=== PATIENT | female | born 2000 | race Caucasian/White ===

== ENCOUNTER 2022-05-28 11:55 | Outpatient (CLI) | payer OTHER, SELFPAY ==
--- NOTE | 2022-05-28 12:15 | CRLHL7_ITS ---
For Patients: As a result of the Cures Act, medical imaging exams and procedure reports are released immediately into your electronic medical record. You may view this report before your referring provider. If you have questions, please contact your health care provider. INDICATION: First trimester scan, establish dates. The last menstrual period is not known. COMPARISON: None. TECHNIQUE: Real-time glover-scale imaging of the pelvis was performed. FINDINGS: Sonographic imaging demonstrates a single living intrauterine gestation. The embryo demonstrates a regular cardiac rate measuring 176 beats per minute. The embryo`s crown-rump length measurement of 1.6 cm corresponds to a gestational age of 8 weeks 0 days with a sonographic due date of January 07, 2023. There is a normal-appearing yolk sac measuring 3.3 mm. There are no gross abnormalities noted within the embryo at this early state of development. The placenta has not yet developed. The gestational sac has a normal appearance and there is no evidence of a perigestational hemorrhage. The amount of fluid within the sac appears appropriate for gestational age. The cervix is closed. The myometrium appears normal. The ovaries are of normal size. The right ovary measures 3.4 x 2.4 x 2.5 cm. The left ovary measures 3.0 x 1.2 x 1.6 cm. Small corpus luteum cyst of on the right. Minimal free clear fluid in the cul-de-sac likely physiologic. IMPRESSION: Normal first trimester OB ultrasound exam. Gestational age calculated at 8 weeks 0 days with a sonographic due date of January 07, 2023. Dictated by Chinmay Moya MD @ 05/28/2022 1:11:42 PM (Electronically Signed)
== END 2022-05-28 11:56 | disposition home or self-care (01) ==
LOC: US 11:55
PROVIDERS: Visit Provider Advanced Practice Midwife
DX: Z34.91 Encounter for supervision of normal pregnancy, unspecified, first trimester (principal)
CPT/HCPCS: 76817; 86592; 86703; 86762; 86787; 86803; 86850; 86900; 86901; 87086; 87340; 87491; 87591; 88174

== ENCOUNTER 2022-05-28 13:46 | Outpatient (CLI) | payer OTHER, SELFPAY ==
[2022-05-28 17:53] LABS: Hepatitis B Surface Antigen* Negative (Negative)
[2022-05-28 18:02] LABS: HIV 1/2/P24 Combo Screen* Negative (Negative)
[2022-05-28 18:11] LABS: Hepatitis C Virus Antibody* Negative (Negative)
[2022-05-28 18:45] LABS: Chlamydia DNA Amplified* NOT DETECTED (No Detected); GC DNA Amplified* NOT DETECTED (No Detected)
[2022-05-30 15:09] LABS: Varicella-Zoster Virus Ab, IgG 97.8 IV
[2022-05-30 15:28] LABS: Rapid Plasma Reagin (RPR) Non Reactive (Non Reactive)
== END 2022-05-28 13:47 | disposition home or self-care (01) ==
PROVIDERS: Visit Provider Advanced Practice Midwife
DX: Z34.91 Encounter for supervision of normal pregnancy, unspecified, first trimester (principal); Z3A.08 8 weeks gestation of pregnancy
CPT/HCPCS: 86592; 86703; 86762; 86787; 86803; 86850; 86900; 86901; 87086; 87340; 87491; 87591; 88174

== ENCOUNTER 2022-08-21 07:59 | Outpatient (CLI) | payer OTHER, SELFPAY ==
--- NOTE | 2022-08-21 08:15 | CRLHL7_ITS ---
For Patients: As a result of the Century Cures Act, medical imaging exams and procedure reports are released immediately into your electronic medical record. You may view this report before your referring provider. If you have questions, please contact your health care provider. INDICATION: Evaluate anatomy. COMPARISON: 05/28/2022 TECHNIQUE: Real time glover scale imaging of the fetus was performed as well as color Doppler analysis of the umbilical vessels. FINDINGS: Sonographic imaging demonstrates a single living intrauterine gestation. Fetus demonstrates a regular cardiac rate of 139 beats per minute. Fetus has a breech position. The placenta lies anteriorly without evidence of placenta previa. The edge of the placenta is located 6.0 cm from the internal cervical os. Amniotic fluid volume appears normal. Single deepest vertical pocket: 3.7 cm. The cervix is closed and measures 4.0 cm in length. The composite ultrasound gestational age is calculated at 20 weeks 1 day with an estimated sonographic due date of 01/07/2023. The estimated weight is 326 grams which lies at the 37th %. The following biometric measurements were obtained: Biparietal diameter: 4.5 cm/19 weeks 4 days 25th% Head circumference: 17.3 cm/19 weeks 6 days 30th% Abdominal circumference: 14.7 cm/20 weeks 0 days 39th% Femur length: 3.2 cm/20 weeks 1 day 40th% The HC/AC ratio measures: 1.18 range (1.07-1.25) On anatomic survey, there is a normal appearance of the cerebral ventricles, cavum septi pellucidi, cisterna magna and cerebellum. The nose, lips, and facial profile appear normal. The cervical, thoracic and lumbar spine are well visualized and appear normal. There is a normal four-chamber heart view. The left and right ventricular outflow tracts are not well visualized. The diaphragm and stomach appear normal. The kidneys and bladder also appear normal. There is a normal three-vessel cord and cord insertion site. The four extremities appear normal. IMPRESSION: Concordance of clinical and sonographic dating. Incomplete visualization of the cardiac outflow tracts due to position. Remainder of the anatomic survey is normal. Short-term follow-up recommended. Dictated by Bulmaro Smith MD @ 08/21/2022 10:31:14 AM (Electronically Signed)
== END 2022-08-21 08:00 | disposition home or self-care (01) ==
LOC: US 08:00
PROVIDERS: Visit Provider Advanced Practice Midwife
DX: Z34.92 Encounter for supervision of normal pregnancy, unspecified, second trimester (principal); Z3A.20 20 weeks gestation of pregnancy
CPT/HCPCS: 76805

== ENCOUNTER 2022-08-28 08:17 | Outpatient (CLI) | payer OTHER, SELFPAY ==
--- NOTE | 2022-08-28 08:15 | CRLHL7_ITS ---
For Patients: As a result of the Century Cures Act, medical imaging exams and procedure reports are released immediately into your electronic medical record. You may view this report before your referring provider. If you have questions, please contact your health care provider. INDICATION: SUBOPTIMAL HEART VIEWS ON ANATOMY SURVEY COMPARISON: 08/21/2022 TECHNIQUE: Real time glover scale imaging of the fetus was performed. FINDINGS: Sonographic imaging demonstrates a single living intrauterine gestation. Fetus demonstrates a regular cardiac rate of 147 beats per minute. Fetus has a vertex position. The placenta lies anteriorly. Amniotic fluid volume appears normal. Single deepest vertical pocket: 4.6 cm. There is a normal four-chamber heart view and the left and right ventricular outflow tracts appear normal. IMPRESSION: Normal four-chamber heart and outflow tracts. Dictated by Bulmaro Smith MD @ 08/28/2022 9:14:10 AM (Electronically Signed)
== END 2022-08-28 08:18 | disposition home or self-care (01) ==
LOC: US 08:18
PROVIDERS: Visit Provider Advanced Practice Midwife
DX: O36.8390 Maternal care for abnormalities of the fetal heart rate or rhythm, unspecified trimester, not applicable or unspecified (principal)
CPT/HCPCS: 76816

== ENCOUNTER 2022-09-02 12:00 | Outpatient (CLI) | payer OTHER, SELFPAY ==
[2022-09-02 11:40] VITALS: BP 113/67; PULSE 87; RESP 16; TEMP 36.4; O2SAT 99; BMI 31.4
[2022-09-02 12:09] VITALS: PULSE 73; O2SAT 98
[2022-09-02 12:10] VITALS: RESP 16; TEMP 37
[2022-09-02 12:21] VITALS: BP 108/63; PULSE 75
--- NOTE | 2022-09-02 13:19 | PC.OBNST ---
NST Note NST Note Start: 09/02/22 12:13 Freq: ONCE Status: Active Protocol: Document 09/02/22 13:14 MONTY (Rec: 09/02/22 13:18 MONTY [id number]) NST Note 1 Para (# of births) 0 EDC 01/07/23 Gestational Age In Weeks & Days 21 Weeks & 6 Days Patient Presented with Complaint(s) of Pain If Pain, describe location Upper/center abdomen, top of rectus abominis Other Complaints Was lifting heavy furniture and had sudden pain there with N/V-had a few spots of blood with vomiting after a half hour. Appropriate for Gestational Age Yes JJ Felix Date 09/02/22 Appropriate for Gestational Age Yes JJ Hernandez RN Date 09/02/22 OB NST charge Yes Complete NST Note via Write Note Yes The provider's electronic signature indicates the NST is reactive/appropriate for gestational age. *Note to provider: If an addendum is required, open the patient's chart and click on the note under the Nurse/Allied Health tab.
--- NOTE | 2022-09-02 13:23 | P.OBLDTN_ITS ---
OB - Triage/Final Diagnosis Visit Information Time Seen by Provider: 13:24 Date Seen: 09/02/22 Date of evaluation: 09/02/22 Narrative: The patient is a 22 year old 1 para 0 at 21 6/7 weeks gestation by u/s and uncomplicated , who presents with abdominal pain and an episode of vomiting this morning. 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 This morning she was putting together a rocking chair at home, while pulling out heavy pieces from the box she felt a sharp pain in her upper abdomen again. She tried resting and a warm bath but it did not help with the pain. She vomited for about 20 minutes around 9:50am, towards the end of the vomiting small bits of bright red blood came up with the vomit - which was mostly water/bile since she did not have much to eat for breakfast per pt. Pt denies any nausea or vomiting since. She came into the ER today with her mother and grandmother, and was sent to L&D triage. Vital Signs are normal. Pt denies contractions, uterine pain, bleeding or vaginal discharge. Denies diarrhea, headaches, nausea or any other pain. Pt stated that the abdominal pain is minimal while resting, but increases with movement and standing. She was able to eat and drink after the exam with no increase in pain or nausea. Upper abdomen is tender to palpation, but soft with no guarding. Uterus is 1 finger breadth above umbilicus, pt denies pain or tenderness with fundal or lower abdominal palpation. Consulted with Dr. Dickey, pain does not seem to be OB related. Likely pulled muscle. Pt stable, discharged home. Pt counseled to return to ER if increase in pain, nausea/vomiting/diarrhea, anorexia, fever, bleeding, cramping/contractions, or increased vaginal discharge/fluid leaking. Work note given at pt's request to excuse her from work for tomorrow d/t the need for rest and recovery, and the physical nature of her job. Reason for evaluation: other Evaluation Vital signs: Vital Signs - 24 hr 09/02/22 11:40 09/02/22 12:09 09/02/22 12:21 Temperature 97.6 F Pulse Rate Pulse Rate [Pulse Oximeter] 87 Respiratory Rate 16 Blood Pressure 108/63 Blood Pressure [Right Upper Arm] 113/67 Pulse Oximetry 99 98 Oxygen Delivery Method Room Air 09/02/22 12:21 09/02/22 12:10 09/02/22 12:10 Temperature 98.6 F Pulse Rate 75 Pulse Rate [Pulse Oximeter] Respiratory Rate 16 Blood Pressure Blood Pressure [Right Upper Arm] Pulse Oximetry Oxygen Delivery Method Fetus (Single) Heart Rate Baseline: 145 (Gestational Age appropriate FHT) Blood Bank Order Control Clerk Variability: Moderate (11-25) Monitor Accelerations: Absent Monitor Decelerations: Variable (occasional) Final Diagnosis (1) Abdominal pain due to injury: Status: Acute (2) Supervision of normal first in second trimester: Status: Acute Non Stress Test Procedure Non Stress Test performed?: No
== END 2022-09-02 14:05 | disposition home or self-care (01) ==
LOC: OB OUT 12:01 → OB 12:01
PROVIDERS: Visit Provider Advanced Practice Midwife
DX: O47.02 False labor before 37 completed weeks of gestation, second trimester (principal); Z3A.21 21 weeks gestation of pregnancy
CPT/HCPCS: 59025; 99213

== ENCOUNTER 2022-10-16 10:54 | Outpatient (CLI) | payer OTHER, SELFPAY ==
[2022-10-18 03:14] LABS: Rapid Plasma Reagin (RPR) Non Reactive (Non Reactive)
== END 2022-10-16 10:55 | disposition home or self-care (01) ==
LOC: NFLDREF 10:54
PROVIDERS: Visit Provider Advanced Practice Midwife
DX: Z34.03 Encounter for supervision of normal first pregnancy, third trimester (principal); Z3A.28 28 weeks gestation of pregnancy
CPT/HCPCS: 86592

== ENCOUNTER 2022-12-11 10:56 | Outpatient (CLI) | payer MEDICAID, OTHER, SELFPAY ==
--- NOTE | 2022-12-11 11:00 | CRLHL7_ITS ---
For Patients: As a result of the Century Cures Act, medical imaging exams and procedure reports are released immediately into your electronic medical record. You may view this report before your referring provider. If you have questions, please contact your health care provider. INDICATION: GROWTH, COVID IN COMPARISON: 08.21.22, 08.28.22 TECHNIQUE: Real time glover scale imaging of the fetus was performed. FINDINGS: Sonographic imaging demonstrates a single living intrauterine gestation. Fetus demonstrates a regular cardiac rate of 157 beats per minute. Fetus has a vertex position. The placenta lies anteriorly. Amniotic fluid volume appears normal and there is a single deepest vertical pocket: 6.7 cm. The estimated weight is 2841gm which lies at the 50th %. On the prior OB ultrasound exam dated 08/21/2022 the estimated weight was at the 37th%. BPD 3rd percentile. HC 28th percentile. AC 63rd percentile. FL 63rd percentile. The HC/AC ratio measures 1.00 range (0.93-1.09). IMPRESSION: Sonographic gestational age 35 weeks 5 days and sonographic due date 01/10/2023. Good correlation with dates. Normal interval growth. Estimated weight 50th percentile. Abdominal circumference 63rd percentile. Dictated by Bulmaro Smith MD @ 12/11/2022 11:58:08 AM (Electronically Signed)
== END 2022-12-11 10:57 | disposition home or self-care (01) ==
LOC: US 10:56
PROVIDERS: Visit Provider Advanced Practice Midwife
DX: O98.513 Other viral diseases complicating pregnancy, third trimester (principal); U07.1 COVID-19; Z3A.36 36 weeks gestation of pregnancy
CPT/HCPCS: 76816; 87081; 87653

== ENCOUNTER 2022-12-11 12:10 | Outpatient (CLI) | payer MEDICAID, SELFPAY ==
[2022-12-12 15:47] LABS: Strep B DNA Probe POSITIVE (Negative)
[2022-12-12 15:48] LABS: Strep B Pen/Amox Allergy No
== END 2022-12-11 12:11 | disposition home or self-care (01) ==
PROVIDERS: Visit Provider Advanced Practice Midwife
DX: Z34.93 Encounter for supervision of normal pregnancy, unspecified, third trimester (principal); Z3A.36 36 weeks gestation of pregnancy
CPT/HCPCS: 87081; 87653

== ENCOUNTER 2022-12-23 23:42 | Outpatient (CLI) | payer MEDICAID, SELFPAY ==
[2022-12-23 23:52] VITALS: BP 130/64; PULSE 86; PULSE 94; O2SAT 97
--- NOTE | 2022-12-24 06:23 | PC.OBNST ---
NST Note NST Note Start: 12/23/22 23:59 Freq: ONCE Status: Active Protocol: Document 12/24/22 01:00 AM (Rec: 12/24/22 06:23 AM [id number]) NST Note 1 Para (# of births) 0 EDC 01/07/23 Gestational Age In Weeks & Days 38 Weeks & 0 Days Patient Presented with Complaint(s) of Decreased movement Reactive Yes Appropriate for Gestational Age Yes RN Randall RNC Date 12/24/22 Reactive Yes Appropriate for Gestational Age Yes JJ Jacinto RN Date 12/24/22 OB NST charge Yes Complete NST Note via Write Note Yes The provider's electronic signature indicates the NST is reactive/appropriate for gestational age. *Note to provider: If an addendum is required, open the patient's chart and click on the note under the Nurse/Allied Health tab.
== END 2022-12-24 01:15 | disposition home or self-care (01) ==
LOC: OB OUT 23:43 → OB 23:44
PROVIDERS: Visit Provider Advanced Practice Midwife
DX: Z34.93 Encounter for supervision of normal pregnancy, unspecified, third trimester (principal); Z3A.38 38 weeks gestation of pregnancy
CPT/HCPCS: 59025; 99213

== ENCOUNTER 2023-01-03 21:07 | Outpatient (CLI) | payer MEDICAID, SELFPAY ==
[2023-01-03 21:26] VITALS: BP 120/63; PULSE 84; PULSE 87; O2SAT 98
[2023-01-03 21:53] LABS: Amnisure Rom* Negative
--- NOTE | 2023-01-03 22:48 | PC.OBNST ---
NST Note NST Note Start: 01/03/23 21:12 Freq: ONCE Status: Active Protocol: Document 01/03/23 22:46 NATE (Rec: 01/03/23 22:47 NATE [id number]) NST Note 1 Para (# of births) 0 EDC 01/07/23 Gestational Age In Weeks & Days 39 Weeks & 3 Days Patient Presented with Complaint(s) of Leaking fluid Reactive Yes Appropriate for Gestational Age Yes JJ Cowan RN Date 01/03/23 Reactive Yes Appropriate for Gestational Age Yes JJ Jacques RN Date 01/03/23 OB NST charge Yes Complete NST Note via Write Note Yes The provider's electronic signature indicates the NST is reactive/appropriate for gestational age. *Note to provider: If an addendum is required, open the patient's chart and click on the note under the Nurse/Allied Health tab.
== END 2023-01-03 22:46 | disposition home or self-care (01) ==
LOC: OB OUT 21:07 → OB 21:09
PROVIDERS: Visit Provider Advanced Practice Midwife
DX: O47.1 False labor at or after 37 completed weeks of gestation (principal); Z3A.39 39 weeks gestation of pregnancy
CPT/HCPCS: 59025; 84112; 99213

== ENCOUNTER 2023-01-14 07:09 | Inpatient (IN) | payer MEDICAID, SELFPAY ==
[2023-01-14 07:31] VITALS: BP 123/75; PULSE 105; PULSE 99; RESP 20; TEMP 36.6; O2SAT 95
[2023-01-14 07:35] VITALS: BMI 36.2
--- NOTE | 2023-01-14 08:15 | P.LDBA_ITS ---
Subjective History of Present Illness Date Seen: 01/14/23 Narrative: Samantha is being admitted to Labor and Delivery for post dates induction of labor. She is a 22 year old at 41.0 weeks gestation. Her full history and physical was done on 12/17/21 by PERI Hung w/ supervision of CHLOE Jimenez. Please see this for details. OB PROBLEM LIST 1. Unplanned . Initially undecided about , decided they are going to continue 2. Anxiety-MAGDIEL 17 at [facility], declined treatment. 3. Covid positive 09/20, out of quarantine 09/29/22 Cough following covid with SOB/pain, albuterol inhaler rx sent 09/29/22; Symptoms resolved 32 Growth US: not planning 36 growth US: 50%ile, BPD 3% with normal HC 4. Anemia- Hgb 10.7 in 3rd trimester advised iron supplementation, every other day 5. GBS positive recommended antibiotics (ampicillin) in labor, pt agreeable OB - Problem Based A/P Additional Plan (1) Encounter for induction of labor: Status: Acute (2) Post-dates : Status: Acute Plan ASSESSMENT:? 22 at 41.0 weeks gestation? complicated by:?GBS positive, Anemia in the third trimester, Covid in Labor type: Induced, Early labor? Category 1 FHR pattern.?? Labor complicated by: NA? GBS positive? ? PLAN:? 1. Routine intrapartum cares as ordered. Cytotec per policy? 2. Monitoring per policy, continuous with Cytotec 3. Candidate for analgesia of choice.?? 4. Patient encouraged to reposition and ambulate to promote physiologic labor and .? 5. GBS phrophylaxis to be initiated for GBS positive status. Will treat with antibiotics per protocol once in active labor. 6. Anticipate ? Delivery/Labor/Induction Plan Plan: induction Induction method: per misoprostol protocol OB Exam Physical Exam Vital signs: Temp Pulse Resp BP Pulse Ox 98 F 76 20 139/82 95 01/14/23 12:02 01/14/23 16:33 01/14/23 16:33 01/14/23 16:33 01/14/23 07:31 Narrative: Vitals Reviewed Constitutional:? Alert and oriented x3 HEENT:? Normocephalic, atraumatic Neck:? Supple Lungs:? Clear to auscultation bilaterally Heart:? Regular rate and rhythm, no murmur, rub or gallop Abdomen:? Soft, nontender, and gravid. Vertex by Tan's, confirmed with cervical exam. Extremities:? No edema or erythema Cervix: 0.5 cm/30%/-2 station/vertex NST: 130 bpm/moderate variability/+accelerations/-decelerations/occasional contractions Detailed Labor and Delivery Exam Patient Gravid: Yes
[2023-01-14 08:26] LABS: SARS PCR* Negative SARS-CoV-2 (Negative)
[2023-01-14] MEDS: miSOPROStoL 25 MCG/0.25 TABLET VAGINAL ×3 (08:33→16:36)
[2023-01-14 10:22] LABS: Basophils Absolute Auto 0.01 K/uL (0.00-0.30); Basophils Percent Auto 0.1 % (0.0-3.0); Eosinophils Absolute Auto 0.18 K/uL (0.00-0.50); Eosinophils Percent Auto 1.9 % (0.0-7.0); Hematocrit 30.6 % (33.0-51.0); Immature Granulocytes Abs Auto 0.04 K/uL (0.00-0.30); Immature Granulocytes Pct Auto 0.4 %; Lymphocytes Absolute Auto 2.25 K/uL (0.90-2.90); Lymphocytes Percent Auto 23.5 % (20-44); Mean Corpuscular HGB Conc 33 gm/dL (32-36); Mean Corpuscular Hemoglobin 28 pg (26-34); Mean Corpuscular Volume 86 fL (80-100); Monocytes Percent Auto 7.7 % (0.0-11.0); Neutrophils Absolute Auto 6.36 K/uL (1.7-7.0); Neutrophils Percent Auto 66.4 % (42.0-72.0); Platelet Count* 239 K/uL (140-440); RDW Coefficient of Variation % 13.6 % (11.5-15.5); Red Blood Count 3.54 m/uL (4.00-5.20); White Blood Count* 9.58 K/uL (4.50-11.00)
[2023-01-14 10:27] LABS: Slide Review Reflex No
[2023-01-14 12:02] VITALS: BP 125/58; PULSE 76; RESP 20; TEMP 36.6
[2023-01-14 16:33] VITALS: BP 139/82; PULSE 76; RESP 20
--- NOTE | 2023-01-14 17:22 | PM.OBPNL ---
Subjective Date Seen: 01/14/23 Narrative: Samantha is resting in her room, her dad and significant other are present. She denies contractions or pain at this time. Pt is agreeable to continuing with the current IOL plan of Cytotec. Has been napping throughout the day, She is currently having dinner. Objective Vital Signs: Last Vital Signs Temp 98 F 01/14/23 12:02 Pulse 76 01/14/23 16:33 Resp 20 01/14/23 16:33 BP 139/82 01/14/23 16:33 Pulse Ox 95 01/14/23 07:31 Pelvic Exam Dilation (cm): 1 Comments: per RN Contractions Monitor mode: External Contraction Frequency: irritability Contraction pattern: Irregular Contraction intensity: Mild Assessment Assessment: induction ongoing Heart Rate Baseline: 120 Automotive Service Writer Variability: Moderate (6-25) Monitor Accelerations: Present Monitor Decelerations: None Plan Plan: ASSESSMENT:? 22 at 41.0 weeks gestation? complicated by:?GBS positive, Anemia in the third trimester, Covid in Labor type: Induced, Early labor? Category 1 FHR pattern.?? Labor complicated by: NA? GBS positive? ? PLAN:? 1. Routine intrapartum cares as ordered. Cytotec per policy? 2. Monitoring per policy, continuous with Cytotec 3. Candidate for analgesia of choice.?? 4. Patient encouraged to reposition and ambulate to promote physiologic labor and .? 5. GBS phrophylaxis to be initiated for GBS positive status. Will treat with antibiotics per protocol once in active labor. 6. Anticipate ? Delivery/Labor/Induction Plan Plan: induction Induction method: per misoprostol protocol
[2023-01-14] MEDS: ACETAMINOPHEN 500 MG TABLET 1000 MG PO (20:44)
[2023-01-14 23:11] VITALS: BP 145/71; PULSE 86; RESP 18; TEMP 36.6
[2023-01-14 23:27] VITALS: BP 130/66; PULSE 81
[2023-01-15] VITALS (70 sets, daily range): BP systolic 87–156; BP diastolic 45–96; PULSE 71–154; RESP 16–18; TEMP 36.5–37.4; O2SAT 78–100
[2023-01-15] MEDS: LACTATED RINGERS 1000 ML 1,000 ML IV ×3 (00:24→03:02)
[2023-01-15] MEDS: ROPIVACAINE 0.2% 100 ml 100 ML 12 MG EPIDURAL ×2 (01:08→09:15)
[2023-01-15] MEDS: PHENYLEPHRINE 100 MCG/ML SYRINGE IVP ×4 (01:20→08:05)
--- NOTE | 2023-01-15 01:23 | PM.ANBPRC ---
[facility] Medical History (Updated 01/14/23 @ 17:38 by Clarita Landin CNM) Depression Surgical History No history of previous surgery Family History Maternal Grandfather Diabetes Maternal Grandmother Brain cancer Social History Smoking Status: Never smoker Little interest or pleasure in doing things: several days Feeling down, depressed, or hopeless: several days Meds Home Medications and Allergies Home Medications Medication Instructions Recorded Confirmed Type prenat.vits,gail,[id number] 1 tab PO QDAY 05/28/22 01/14/23 History ferrous sulfate 325 mg (65 mg 325 mg PO Q OTHER DAY 12/24/22 01/14/23 History iron) tablet (Feosol) Allergies Allergy/AdvReac Type Severity Reaction Status Date / Time No Known Allergies Allergy Unknown Verified 01/08/23 10:18 Results Labs Labs: Laboratory Results - last 24 hr 01/14/23 01/14/23 01/14/23 07:24 10:10 10:10 WBC 9.58 RBC 3.54 L Hgb 10.0 L Hct 30.6 L MCV 86 MCH 28 MCHC 33 RDW Coeff of Radha 13.6 Plt Count 239 Neut % (Auto) 66.4 Lymph % (Auto) 23.5 Donley % (Auto) 7.7 Eos % (Auto) 1.9 Baso % (Auto) 0.1 Neut # (Auto) 6.36 Lymph # (Auto) 2.25 Donley # (Auto) 0.70 Eos # (Auto) 0.18 Baso # (Auto) 0.01 SARS-CoV-2 (PCR) Negative SARS-CoV-2 Blood Type A Positive Antibody Screen NEGATIVE Vital Signs Vital Signs: Last Vital Signs Temp 97.9 F 01/14/23 23:11 Pulse 99 01/15/23 01:22 Resp 18 01/14/23 23:11 BP 101/51 L 01/15/23 01:22 Pulse Ox 98 01/15/23 01:09 Weight: 95.708 kg Height: 162.56 cm Anesthesia Procedures Epidural Insertion Patient Location: OB Start Time: 00:25 Stop Time: 01:25 Start Date: 01/15/23 Stop Date: 01/15/23 Reason for Block: procedure for pain Patient Position: sitting Performed By: Bryson Herman Preanesthetic Checklist: IV checked, risks and benefits discussed, surgical consent, monitors and equipment checked, pre-op evaluation, timeout performed and anesthesia consent Prep: chlorhexidine gluconate Monitoring: blood pressure monitoring, continuous pulse oximetry and heart rate Approach: midline Vertebral Space: lumbar (1-5) Epidural Technique: MIGUELITO saline Needle Type: Tuohy needle Injection Technique: continuous catheter Needle gauge: 17 Needle Length (cm): 10 cm Needle Insertion Depth (cm): 8 Catheter Gauge: 19 Catheter Type: multi-orifice Catheter at skin depth (cm): 14 Test Dose Result: negative and lidocaine 1.5% with epinephrine 1 to 200,000
[2023-01-15] MEDS: ePHEDrine sulfate 5 MG/ML inj 10 MG IVP ×2 (01:28→02:11)
[2023-01-15] MEDS: AMPICILLIN 2 GM in 0.9 % SODIUM CHLORIDE Mini-bag 100 ML IVPB (01:41)
[2023-01-15] MEDS: AMPICILLIN 1 GM in 0.9 % SODIUM CHLORIDE Mini-bag 100 ML IVPB ×2 (05:57→09:44)
[2023-01-15] MEDS: OXYTOCIN 30 unit/500 ML in NS 30 UNIT/500 ML BAG IVPB (08:04)
--- NOTE | 2023-01-15 09:41 | PM.OBPNL ---
Subjective Time Seen by Provider: 07:45 Date Seen: 01/15/23 Narrative: Samantha is coping well with labor pain/contractions. She has an epidural which is working well, though she is very shaky. She is currently being supported by her mom and partner. SVE demonstrated little progress since previous exam early this morning. Reviewed options of AROM vs pitocin. Hesitant to use AROM as there is already evidence the fetus is not tolerating ctx. Decision made to proceed with pitocin. Objective Exam: VSS, afebrile General Appearance:? Calm, cooperative. No acute distress. ? Psychiatric Exam: Alert and oriented, appropriate affect Abdomen: Gravid Ctx: ?Q 5-7 min apart. ?Mild FHTs: Baseline: 135 Variability: moderate Accels: present Decels: lates and variables SVE: 4/100/-2 Membranes: Intact ? Vital Signs: Last Vital Signs Temp 97.8 F 01/15/23 06:02 Pulse 106 H 01/15/23 09:32 Resp 16 01/15/23 06:02 BP 112/58 L 01/15/23 09:32 Pulse Ox 98 01/15/23 01:09 Pelvic Exam Dilation (cm): 1 Assessment Heart Rate Baseline: 120 Plan Plan: Assessment:?? 22 at 41.1 gestation?? Patient is coping well with challenges of labor.?? Labor type: Induced, Early labor? complicated by: -anemia Labor complicated by: -GBS positive -late decels at times, not repetative and resolve with position change No progress since 2 am. ? Plan:?? Continue with routine intrapartum cares as ordered.?? Continue with GBS prophylaxis Patient encouraged to change positions to promote physiologic labor and .?? Continue with epidural for pain management Decision made to proceed with pitocin augmentation. Will monitor FHTs closely Anticipate progress to NVD.
--- NOTE | 2023-01-15 10:27 | PM.OBPNL ---
Subjective Time Seen by Provider: 10:15 Date Seen: 01/15/23 Narrative: Called to room by RN. Pitocin up to 3 mu, and now repetitive late decels noted with ctx, becoming deeper and slower return to baseline. Pt repositioned with no resolve of late decels. Reviewed with pt concerns over intolerance to labor, and that this is becoming more pronounced with stronger ctx. Recommend we proceed with . Questions answered. Pt agrees with plans. Objective Exam: VSS, afebrile General Appearance:? Calm, cooperative. No acute distress. ? Psychiatric Exam: Alert and oriented, appropriate affect Abdomen: Gravid Ctx: ?Q 3-5 min apart. ?Mild - Moderate FHTs: Baseline: 140 Variability: min-mod Accels: none Decels: repetitive lates SVE: deferred Membranes: Intact ? Vital Signs: Last Vital Signs Temp 98.9 F 01/15/23 09:52 Pulse 88 01/15/23 10:17 Resp 16 01/15/23 06:02 BP 122/60 01/15/23 10:17 Pulse Ox 98 01/15/23 01:09 Plan Plan: Assessment:?? 22yo G 1 P0 at 41.1 gestation?? Patient is coping with challenges of labor.??Comfortable with epidural. Labor type: Induced for dates complicated by: -anemia Labor complicated by: -GBS positive -repetitive late decels ? Plan:?? Originally planned to proceed with . Dr. Andrade at bedside, pt c/o of increased pressure. Noted to be complete, and decision made to proceed with pushing. Upon further assessment anterior lip noted, not able to reduce. Decision made to restart the pitocin at 1, and continue to labor until complete and pushing. Will continue to monitor FHTs closely. Dr. Andrade aware and agrees with plan
[2023-01-15] MEDS: LACTATED RINGERS 1000 ML 1,000 ML 525 ML IV (10:48)
--- NOTE | 2023-01-15 13:24 | W.PM.OBVAGDE ---
OB Procedure Vag Delivery Mother Details Mother Details: The patient is a 22 year-old, 1, Para 0, admitted on 01/14/23 at 41.0 Days gestation. She was admitted for an IOL for dates. : 1 Para: 1 Weeks Gestation: 41.0 Admission Date: 01/14/23 Additional Details Amniotic Membrane Status: SROM (unknown when) Amniotic Membrane Fluid Description: Clear Analgesia/Anesthesia Type: Epidural Waterbirth: No Pitcoin: Yes Intrapartal Events: Labor Augmentation (pitocin), Labor Induction (cytotec) and Distress (late decels noted, repetative at times. ) Induction Method: per misoprostol protocol Delivery augmentation: pitocin Labor Onset: 08:00 Complete: 11:43 Pushin:43 Heart: heart tones during second stage: decels noted with pushing, becoming increasingly deep. Good recovery to baseline 145 between. Delivery Details Delivery Date: 01/15/23 Delivery Time: 12:40 Route of delivery: Infant Gender: Female Viability: Alive; Heart Rate Present Position at Delivery: OA Delivery Details: Called to pt room for repetitive lates, pitocin DC'd by RNs. Decision made to proceed with . Dr. Andrade at bedside to consent, and pt c/o increased pressure. SVE done, complete per Dr. Andrade. Decision made to start pitocin at 1 cm to help with ctx spacing. Pt then noted to have non-reducible anterior lip. Decision made to labor down and monitor FHTs closely. Pt c/o increased urge to push, anterior lip present but reducible. Decision made to proceed with pushing. Pushing continued, but decelerations noted to be deeper and slower return to baseline. Dr. Andrade called to bedside to assess for vacuum assisted delivery. FHTs noted to improve somewhat, and infant . No vacuumed needed at that time. At 1240 a viable? female delivered in vertex OA presentation over intact perineum via spontaneous vaginal?delivery. ? was placed on maternal abdomen. ?Cord was clamped and cut after a 5+ minute delay.? Nose and mouth were bulb suctioned.? Infant weight pending. ? 8 at 1 minute and 9 at 5 minutes. ?Shoulder dystocia: no. ?Nuchal cord: no. 1 Minute Interval Total Score: 8 5 Minute Interval Total Score: 9 Additional Details Shoulder Dystocia: No Placenta Delivery Time: 12:50 Placental Delivery Description: Spontaneous Procedure Done: Global Blood Loss: 25 Laceration: Perineal - 1st Degree (not bleeding, not repaired) Blood Loss Measurement Type: QBL Bakri Used: No Sponge/Need Count Correct: Yes Cord Vessel Description: 3 Vessels Event Summary Status: Mother and infant were stable after delivery. Disposition: floor
[2023-01-15] MEDS: ACETAMINOPHEN 500 MG TABLET 1000 MG PO (17:10)
--- NOTE | 2023-01-15 17:40 | P.OBCN_ITS ---
OB - CN: HPI Date of Consult Date Seen: 01/15/23 Patient: [facility] Patient Consult date: 01/15/23 Requesting Physician: Clarita Landin CNM Primary Care Provider: Not a Local Provider Consult Narrative Narrative: The patient is a 22 year old G1 P 0 woman at 41 1/7 weeks gestation that was admitted to the Center on 01/14/23 for postdates IOL. She is cared for by [facility] service. She has been on pitocin this AM. tracing was notable for recurrent late decelerations and occasional prolonged decelerations, and pitocin had previously been stopped for concerns regarding the tracing. Cristel Mcintyre CNM, called me to evaluate the patient shortly after 11 AM. Upon my arrival, Samantha was not feeling contractions. She had epidural in place, as well as catheter. She mentioned that she felt intermittent need to have a bowel movement. I then checked her cervix. I initially thought she was complete, 0 station. Subsequently a right anterior lip was found by Cristel Mcintyre. SROM had apparently occurred previously, but was not noticed by patient. strip normalized to category 1 after cessation of pitocin. A few pushes were attempted, and then anterior lip was noted. Patient was placed in right side lying position for a time, then pushing resumed when patient was truly complete. Pitocin was started at a dose of 1 mU a min. Tracing was category 2 during initiation of pushing, with brief variables during contractions. I was then called back to the room due to deep recurrent variables following pushing. There was recovery to baseline between contractions. At that time, vertex was +2-3. On exam, fetus was OA. I discussed the possibility of vacuum assisted vaginal delivery with the patient. The vacuum was brought to the room and I prepared to assist. However, during the course of the next 4 pushes, she went on to have a successful spontaneous vaginal delivery. History History 1 Elective abortions Para 1 Spontaneous abortions Hx # Term Pregnancies Ectopic pregnancies Hx # Pregnancies Multiple births Number of Living Children 0 Labs OB Labs: Lab Assessment Start: 01/14/23 07:24 Freq: ONCE Status: Complete Protocol: PC.OBGBS Activity Type Activity Date Activity User E-sign Co-sign Detail Recorded Client Recorded Date Recorded By Document 01/14/23 10:46 JENNY [id number] 01/14/23 10:47 JENNY 01/14/23 10:46 Lab Assessment GBS Positive Previous [place] with Invasive GBS No Does Patient Meet Criteria Yes Is Patient Allergic to Penicillin No Does Patient Have History of Severe No Reaction Are Susceptibility Studies Available No Resistant to Either Clindamycin or No Erythromycin Treatment Required OK Maternal Blood Type A Maternal RH Factor Positive Evaluate Maternal Rubella Immune Status Immune Hepatitis B Surface Antigen Negative Maternal HIV Status Negative Maternal Syphillis (RPR) Status Negative Are Labs Available Yes PFSH PFS Medical History (Updated 01/14/23 @ 17:38 by Clarita Landin CNM) Depression Surgical History No history of previous surgery Family History Maternal Grandfather Diabetes Maternal Grandmother Brain cancer Social History Smoking Status: Never smoker Little interest or pleasure in doing things: several days Feeling down, depressed, or hopeless: several days Meds Home Medications and Allergies Home Medications Medication Instructions Recorded Confirmed Type prenat.vits,gail,msv-lleu-ounct 1 tab PO QDAY 05/28/22 01/14/23 History ferrous sulfate 325 mg (65 mg 325 mg PO Q OTHER DAY 12/24/22 01/14/23 History iron) tablet (Feosol) Allergies Allergy/AdvReac Type Severity Reaction Status Date / Time No Known Allergies Allergy Unknown Verified 01/08/23 10:18 OB - H&P: Exam Physical Exam: Vital signs: Temp Pulse Resp BP Pulse Ox O2 Del Method 99.4 F 86 18 127/77 97 01/15/23 17:14 01/15/23 14:33 01/15/23 17:14 01/15/23 17:14 01/15/23 17:14 01/15/23 17:14 OB - CN: A/P Assessment and Plan (1) Encounter for induction of labor: Status: Acute (2) Post-dates : Status: Acute
[2023-01-15] MEDS: IBUPROFEN 600 MG TABLET PO (20:05)
[2023-01-16 00:32] VITALS: BP 119/79; PULSE 98; RESP 16; TEMP 36.6; O2SAT 98
[2023-01-16 04:34] VITALS: BP 114/68; PULSE 88; RESP 16; TEMP 36.8; O2SAT 96
[2023-01-16] MEDS: IBUPROFEN 600 MG TABLET PO ×2 (04:57→23:51)
[2023-01-16 06:49] LABS: Hemoglobin* 8.7 gm/dL (12.0-16.0)
[2023-01-16 08:37] VITALS: BP 111/68; PULSE 87; RESP 16; TEMP 36.4; O2SAT 98
[2023-01-16] MEDS: DOCUSATE SODIUM 100 MG CAPSULE PO (08:43)
--- NOTE | 2023-01-16 08:48 | P.DS_ITS ---
DS: Providers Provider Time Seen by Provider: 08:48 Date Seen: 01/16/23 Date of admission: 01/14/23 07:09 Primary care physician: Not a Local Provider Admitting Clinician: Clarita Landin CNM Attending Physician on discharge: Clarita Landin CNM Date of Discharge: 01/16/23 DS: Diagnosis Discharge Diagnosis (1) NVD (normal vaginal delivery): Status: Acute (2) Lactating mother: Status: Acute (3) First degree perineal laceration: Status: Acute Exam Narrative: Exam Narrative: VSS, afebrile GENERAL APPEARANCE: ?normal affect, alert, no distress MOOD: ?appropriate HEENT: normocephalic, neck supple, full ROM CHEST: ?Symmetrical chest wall movement. ?Normal respiratory effort. ?Clear to auscultation HEART: ?regular rate and rhythm ABDOMEN: ?soft, non-tender. Uterine fundus is firm, at Umbilicus, Midline and is appropriate for the stage of recovery. ?Bowel sounds present. PERINEUM: ?mild edema of the perineum, there is a 1st degree laceration that is healing well. EXTREMITIES: ?normal and trace edema Const: Vital Signs, click to edit/add: Vital Signs - 24 hr 01/15/23 09:03 01/15/23 09:17 01/15/23 09:32 Temperature Pulse Rate 81 103 H 106 H Pulse Rate [Pulse Oximeter] Respiratory Rate Blood Pressure 98/54 L 108/57 L 112/58 L Blood Pressure [Le ft Arm] Pulse Oximetry Oxygen Delivery La thod 01/15/23 09:47 01/15/23 09:52 01/15/23 10:02 Temperature 98.9 F Pulse Rate 93 97 Pulse Rate [Pulse Oximeter] Respiratory Rate Blood Pressure 111/58 L 108/58 L Blood Pressure [Le ft Arm] Pulse Oximetry Oxygen Delivery La thod 01/15/23 10:17 01/15/23 10:32 01/15/23 10:48 Temperature Pulse Rate 88 101 H 81 Pulse Rate [Pulse Oximeter] Respiratory Rate Blood Pressure 122/60 112/54 L 123/66 Blood Pressure [Le ft Arm] Pulse Oximetry Oxygen Delivery La thod 01/15/23 11:02 01/15/23 11:50 01/15/23 12:19 Temperature Pulse Rate 93 99 142 H Pulse Rate [Pulse Oximeter] Respiratory Rate Blood Pressure 123/64 116/81 141/96 H Blood Pressure [Le ft Arm] Pulse Oximetry Oxygen Delivery Me thod 01/15/23 13:03 01/15/23 13:18 01/15/23 13:33 Temperature Pulse Rate 103 H 94 102 H Pulse Rate [Pulse Oximeter] Respiratory Rate Blood Pressure 131/76 136/75 122/56 L Blood Pressure [Le ft Arm] Pulse Oximetry Oxygen Delivery Me thod 01/15/23 13:48 01/15/23 14:03 01/15/23 14:19 Temperature Pulse Rate 94 90 82 Pulse Rate [Pulse Oximeter] Respiratory Rate Blood Pressure 122/56 L 121/58 L 116/57 L Blood Pressure [Le ft Arm] Pulse Oximetry Oxygen Delivery Me thod 01/15/23 14:33 01/15/23 17:14 01/15/23 20:00 Temperature 99.4 F 98.0 F Pulse Rate 86 Pulse Rate [Pulse Oximeter] Respiratory Rate 18 16 Blood Pressure 112/65 Blood Pressure [Le ft Arm] 127/77 126/76 Pulse Oximetry 97 97 Oxygen Delivery Me thod Room Air Room Air 01/16/23 00:32 01/16/23 04:34 01/16/23 08:37 Temperature 98 F 98.3 F 97.6 F Pulse Rate Pulse Rate [Pulse Oximeter] 98 88 87 Respiratory Rate 16 16 16 Blood Pressure Blood Pressure [Le ft Arm] 119/79 114/68 111/68 Pulse Oximetry 98 96 98 Oxygen Delivery Me thod Room Air Room Air Documenting provider has reviewed patient's vital signs: yes OB - DS: Summary Hospital Course Hospital Course: Samantha is a 22 y.o. who was admitted to L & [facility] for IOL for postdates. ?She had an uncomplicated NVD The patient feels well. ?The pain is well controlled with current medications. ?She has no new complaints. ?She is breast feeding and reports things are going well.? the patient has done well.? Vitals have been stable.? She has remained afebrile.? Has a good appetite, is tolerating a general diet. ?She is voiding without difficulty.? She is passing gas and has not had a bowel movement.? She is ambulating and denies any dizziness.? Has Small amount of rubra lochia. ?She is planning condoms for prevention. Peripartum Data Infant delivery method: Vaginal Laceration description: Perineal - 1st Degree Procedures: Procedures Operation Date: 01/15/23 11:15 <No data on this case meets the specified criteria> complications: none [place] Gender: Female Status at Discharge Functional status at discharge: independent ambulation Overall status at discharge: patient is progressing back to baseline Time Spent with Patient Time attestation: Total time spent providing and/or coordinating discharge services: Time spent: Less than 30 minutes Discharge Plan Discharge Disposition: Home, Self-Care Date of Admission: 01/14/23 07:09 Attending Provider on Discharge: Cristel Mcintyre Primary Care Provider: Provider,Not a Local Condition: Stable Anticipated Discharge Date/Time: 01/16/23 16:51 Discharge Medications: New docusate sodium 100 mg Capsule 100 mg PO BID PRNQty: 100 0RF Rx Instructions: Take 1 cap 1-2 times a day as needed for constipation. ibuprofen 600 mg Tablet 600 mg PO Q6H PRNQty: 60 0RF Continued prenat.vits,gail,ypy-fuuq-vtnqv Tablet 1 tab PO QDAY ferrous sulfate [Feosol] 325 mg (65 mg iron) tablet 325 mg PO Q OTHER DAY Discharge Orders: Discharge Order (Routine); Ordered 01/16/23 Ordered By: Cristel Mcintyre Patient Education: OB Over the Counter Medication Information, OB Vaginal/Breast Feeding Activity Level: Activity as Tolerated Discharge Diet: Regular Follow Up Appointments: Provider,Not a Local [Primary Care Provider] - Forms: [employer] Info Instructions
[2023-01-16 12:12] VITALS: BP 119/78; PULSE 94; RESP 16; TEMP 36.4; O2SAT 97
[2023-01-16 15:42] VITALS: BP 121/75; PULSE 94; RESP 18; TEMP 36.6
[2023-01-16 19:25] VITALS: BP 127/81; PULSE 93; RESP 18; TEMP 37; O2SAT 99
[2023-01-17 03:30] VITALS: BP 119/74; PULSE 77; RESP 16; TEMP 37; O2SAT 97
[2023-01-17 08:26] VITALS: BP 120/75; PULSE 75; RESP 16; TEMP 36.6; O2SAT 97
[2023-01-17] MEDS: FERROUS SULFATE 325 MG TABLET PO (08:28)
[2023-01-17] MEDS: DOCUSATE SODIUM 100 MG CAPSULE PO (08:29)
--- NOTE | 2023-01-17 08:52 | PM.OBPNVD1 ---
OB - PN:Subj Subjective Time Seen by Provider: 08:52 Date Seen: 01/17/23 Interval history: Samantha is a 22 y.o. who was admitted to L & D for IOL for dates. She had an uncomplicated NVD. Patient comments OB post-: no complaints, pain well controlled, tolerating diet and flatus present [place] status: doing well feeding status: exclusively Narrative: The patient feels well. The pain is well controlled with current medications. She has no new complaints. She is breast feeding and reports things are going well.? the patient has done well.? Vitals have been stable.? She has remained afebrile.? Has a good appetite, is tolerating a general diet. She is voiding without difficulty.? She is passing gas and has not had a bowel movement.? She is ambulating and denies any dizziness.? Has Small amount of rubra lochia. She was discharged yesterday, but decided to stay another day to get help with . OB - PN: Obj Exam Physical Exam: Vital signs: Temp Pulse Resp BP Pulse Ox O2 Del Method 97.8 F 75 16 120/75 97 01/17/23 08:26 01/17/23 08:26 01/17/23 08:26 01/17/23 08:26 01/17/23 08:26 01/17/23 08:26 Narrative: GENERAL APPEARANCE: normal affect, alert, no distress MOOD: appropriate HEENT: normocephalic, neck supple, full ROM CHEST: Symmetrical chest wall movement. Normal respiratory effort. Clear to auscultation HEART: regular rate and rhythm ABDOMEN: soft, non-tender. Uterine fundus is firm, 3 below Umbilicus, Midline and is appropriate for the stage of recovery. Bowel sounds present. PERINEUM: mild edema of the perineum, there is a 1st degree laceration that is healing well. EXTREMITIES: normal and no edema OB - PN: A/P Vaginal Delivery Assessment and Plan (1) NVD (normal vaginal delivery): Status: Acute (2) Lactating mother: Status: Acute (3) First degree perineal laceration: Status: Acute Plan Plan: routine care Comments: G 1 P 1 status post uncomplicated NVD 1. Continue route PP cares 2. . May see if desired 3. Acute anemia. Iron supplement ordered 4. Discharge home today
== END 2023-01-17 10:05 | disposition home or self-care (01) | DRG 560 ==
PROVIDERS: Advanced Practice Midwife; Admitting Provider Advanced Practice Midwife; Visit Provider Advanced Practice Midwife
DX: O48.0 Post-term pregnancy (principal); O76 Abnormality in fetal heart rate and rhythm complicating labor and delivery; O70.0 First degree perineal laceration during delivery; O99.824 Streptococcus B carrier state complicating childbirth; O99.344 Other mental disorders complicating childbirth; F41.9 Anxiety disorder, unspecified; O99.02 Anemia complicating childbirth; D62 Acute posthemorrhagic anemia; Z3A.41 41 weeks gestation of pregnancy; Z37.0 Single live birth
CPT/HCPCS: 01967; 36415; 59200; 85018; 85025; 86850; 86900; 86901; 87635; A9270; J0290; J2370; J2795; J3010; J7120; S0020

== ENCOUNTER 2024-11-04 08:16 | Emergency (ER) | payer MEDICAID, SELFPAY ==
--- OUTSIDE RECORDS SUMMARY | 2024-11-04 08:19 | XMS_ITS | Clinical Summary ---
Author Organization [facility] Address [place], [place] [address] Care Team Providers Care [employer] Laboratory Assistant Name Role Phone Sonia Cui Jame, LP Unavailable [phone] Nicolette Miramontes MD Primary Care Prov ider Allergies No known active allergies Medications escitalopram oxalate (LEXAPRO) 10 mg tabletIndication s:Obsessive-comp ulsive disorder, unspecified type Take 0.5 Tablets (5 mg) by mouth once daily in the morning for 1 week then increase to 1 tablet (10mg) daily in the morning. 30 Tablet 2 Active Active Problems Problem Noted Date Diagnosed Date Depression, major, single episode, severe 2023 Mixed obsessional thoughts and acts 06/14/2024 Generalized anxiety disorder 06/14/2024 Obsessive-compulsive disorder 06/14/2024 Attention deficit hyperactiv ity disorder (ADHD), combined type 05/31/2024 Obsessive-compulsive behavior 05/31/2024 Depression 2024 Anxiety and depression 2024 Anxiety 01/31/2024 ADHD (attention deficit hyperactivity disorder) evaluation 01/31/2024 PTSD (post-traumatic stress disorder) 07/17/2019 Encounters Date Type Department Care Team Description 10/30/2024 Telephone [facility] [address] [place] [address] Nicolette Miramontes MD Referral (requesting psychiatry services ) from Last 3 Months Immunizations Name Administration Dates Next Due DTaP 04/24/2005, 1,2000,07/07,2000 HIB-HepB (Comvax) 03/09/2001,2000,04/09/20 00 Hepatitis A (Adult) 07/01/2012 Hepatitis A (Peds) 04/04/2009 Human Papilloma Virus Vaccine 07/04/2013, 012 Inactivated Polio Vaccine 04/24/2005,07/2001,2000,04/29 Influenza, IIV4 08/03/2019 MENINGOCOCCAL VACCINE 2 VIAL [id number] (MENVEO) 07/01/2012 MMR 04/24/2005,03/09/2001 Tdap 07/01/2012 Varicella Vaccine 04/04/2009,06/06/2001 Family History Medical History Relation Name Comments Good Health Father Good Health Mother Good Health Sister 1 Good Health Sister 2 Good Health Sister 3 Relation Name Status Comments Father Mother Sister 1 Sister 2 Sister 3 Social History Tobacco Use Types Packs/Day Years Used Date Smoking Tobacco: Former Cigarettes 0.3 0.3 0 05/03/2019 - 08/26/2019 Smokeless Tobacco: Never Tobacco Cessation:Counseling Given: Not Answered Alcohol Use Standard Drinks/Week Comments Never 0 (1 standard drink = 0.6 oz pur e alcohol) [facility] Utilities Answer Date Recorded Do you have trouble paying f or utilities (for example, heat, electricity, water, phone)? Yes 07/28/2024 PHQ-2 Answer Date Recorded PHQ-2 TOTAL SCORE 1 07/28/2024 Social Connections Answer Date Recorded Do you often feel lonely or isolated from those around you? 0 07/28/2024 Financial Resource Strain Answer Date R ecorded Difficulty of Paying Living Expenses 3 07/28/2024 Difficulty of Paying Living Expenses Not on file 07/28/2024 Food Insecurity Answer Date Recorded Do you worry your food will run out before you are able to buy more? 1 07/28/2024 Transportation Needs Answer Date Record ed Does lack of transportation keep you from medica l appointments? 1 07/28/2024 Does lack of transportation keep you from work, meetings or getting things that you need? 1 07/28/2024 Housing Stability Answer Date Recorded What is your housing situation today? 1 07/28/2024 Comments No Sex and Gender Information Value Date Recorded Sex Assigned at Not on file Legal Sex Female 5:41 AM [employer] Gender Identity Not on file Sexual Orientation Not on file Obstetrics History Last Filed Vital Signs Vital Sign Reading Time Taken Comments Blood Pressure 101/66 07/28/2024 1:47 PM CDT Pulse 65 07/28/2024 1:47 PM CDT Temperature 36.4 C (97.5 F) 09/26/2019 9:33 AM ELECTRIC BLANKET P[employer]ER Respiratory Rate - - Oxygen Saturation 98% 07/28/2024 1:47 PM CDT Inhaled Oxygen Concentration - - Weight 86.2 kg (190 lb) 07/28/2024 1:47 PM CDT Height 162 cm (5' 3.78) 07/28/2024 1:47 PM CDT Body Mass Index 32.84 07/28/2024 1:47 PM CDT Plan of Treatment Upcoming Encounters Date Type Department Care Team (Late st Contact Info) Description 11/28/2024 9:00 AM ELECTRIC BLANKET P[employer]ER Office Visit [facility] [place] [address] [place] [address] [place] [address] [place] [address] Health Maintenance Due Date Last Done Comments HIV for age 15-65 02/28/2015 Hepatitis C screening for age 18-79 02/28/2018 Chlamydia for age 16-24 08/03/2020 08/03/2019, 05/17 Tetanus booster 07/01/2022 07/01/2012 COVID-19 vaccine series ( season) 2024 12/12/2020, 11/14/2020 Influenza for age 9-49 07/02/2024 08/03/2019 Pap test for age 21-65 05/28/2025 05/28/2022 BMI (ht and wt on same day) for age 18+ 07/28/2025 07/28/2024, 12/19/2021, 09/26/2019, Additional history exists Depression screening for age 12+ 07/28/2025 07/28/2024, 07/05/2024, 06/14/2024, Additional history exists Tdap Completed 07/01/2012 HPV series for age 9-26 Completed 07/04/2013, 07/01 Pneumococcal series for age 6-49 Aged Out No longer eligible based on patient's age to complete this topic Procedures Procedure Name Priority Date/Time Associated Diagnosis Comments MANAGING CONSULTANT CLINICAL PROFESSOR THIN PREP PAP SCREEN IMAGED Routine 05/28/2022 3:00 PM CDT GC CHLAMYDIA TRACH PROBE Routine 08/03/2019 8:30 AM CDT Screening for STD (sexually transmitted disease) from Last 3 Months or Most Recently Relevant to Health Maintenance Results * MANAGING CONSULTANT CLINICAL PROFESSOR THIN PREP PAP SCREEN IMAGED (05/28/2022 3:00 PM CDT) Case Report Gynecologic Cytology Report Case: [id number] Authorizing Provider: Unknown, Doctor Collected: 05/28/2022 1500 Ordering Location: [facility] Received: 05/29/2022 1659 First Screen: Olimpia Hollingsworth Specimen: MANAGING CONSULTANT CLINICAL PROFESSOR ThinPrep Vial Screening, Cervical 06/12/2022 6:44 PM CDT [facility] INTERPRETATION/ RESULT NEGATIVE FOR INTRAEPITHELIAL LESION OR MALIGNANCY (NIL) (none) 06/12/2022 6:44 PM CDT [facility] IMEN ADEQUACY Satisfactory for evaluation Endocervical component present 06/12/2022 6:44 PM CDT [facility] HPV REQUEST HPV if ASCUS 06/12/2022 6:44 PM CDT [facility] Date of LMP 06/12/2022 6:44 PM CDT [facility] Comment:Unknown Last Pap Date 06/12/2022 6:44 PM CDT [facility] Comment:First Last Pap Result First Pap/Unknown 6:44 PM CDT [facility] Abnormal Pap or [place] Bx in last 5 years No 06/12/2022 6:44 PM CDT [facility] Menstrual Status 06/12/2022 6:44 PM CDT [facility] [place] Bx Done Today No 06/12/2022 6:44 PM CDT [facility] Additional Information 06/12/2022 6:44 PM CDT [facility] Comment: Interpreted at [facility] - [address], [place] [address] Automated Review Successful 06/12/2022 6:44 PM CDT [facility] Comment:Specimen processed s uccessfully by automated acid etch operator device, [employer] Systems[employer] Imaging System, [employer] Note The pap test is a screening technique, not a diagnostic procedure. It is used primarily to screen for squamous cancers and precursor lesions. Published studies have shown that it is subject to both false negative and false positive results. The pap test should not be used as the sole means to diagnose or exclude pre-malignant and malignant lesions. 06/12/2022 6:44 PM CDT [facility] Other (Cervical) 05/28/2022 3:00 PM CDT 05/29/2022 4:59 PM CDT us Doctor Unknown PATHOLOGY/CYTOLOGY Final Result [facility] [address] [place] [address], [place] * GC CHLAMYDIA TRACH PROBE (08/03/2019 8:30 AM CDT) CHLAMYDIA PROBE Negative 9 8:31 AM CDT [facility] N GONORRHOEAE PROBE Negative 08/04/2019 8:31 AM CDT [facility] Other URINE SPECIMEN / Unknown Non-Blood / Unknown 08/03/2019 8:30 AM CDT 08/03/2019 8:48 AM CDT Carly Jimenez PA MICROBIOLOGY Final Resu lt [facility] [address] [place] [address], from Last 3 Months or Most Recently Relevant to Health Maintenance Insurance [employer] Care Teams [employer] Laboratory Assistant Relationship Specialty Start Date End Date Nicolette Miramontes MD [address] [place] [address] PCP - General Family Practice 07/28/24 [place], [place] [address] [place] [address] Psychologist Psychology 11/22/23
[2024-11-04 08:37] VITALS: BP 115/66; PULSE 97; RESP 16; TEMP 36.8; O2SAT 96; BMI 30.9
--- NOTE | 2024-11-04 08:53 | ED_ITS ---
HPI - Headache General Time Seen by Provider: 08:53 Date Seen: 11/04/24 Chief Complaint: Headache/Migraine Stated Complaint: headache/ear pain Time Seen by Provider: 11/04/24 08:52 Source: patient and RN notes reviewed Mode of arrival: ambulatory Limitations: no limitations History of Present Illness HPI Narrative: This 24-year-old female is coming in with complaint of severe headache. Her whole head hurts, feels like ice picks are going in both of her ears. She normally does not take any nars-vkf-qkqcfad medicine and has tried Tylenol and ibuprofen without any relief. The headache is been present for about 3 days. Associated with this headache she has been sick. She started with sore throat and some congestion about a week ago. This progressed into chills, probable fevers, body aches, coughing. She still has some sore throat. Her daughter and have subsequently gotten sick. She feels like the illness is getting worse. She typically does not get headaches. Does not believe there is any chance for . Tylenol and ibuprofen really have done nothing for her headache. Related Data Home Medications ?Medication ?Instructions ?Recorded ?Confirmed No Known Home Medications 11/04/24 11/04/24 Previous Rx's ?Medication ?Instructions ?Recorded ketorolac 10 mg tablet 10 mg PO Q6H PRN pain #20 tabs 11/04/24 Allergies Allergy/AdvReac Type Severity Reaction Status Date / Time No Known Allergies Allergy Unknown Verified 11/04/24 08:41 Review of Systems Status of ROS: Reports: 6 or more systems reviewed and unremarkable except as noted in History and below [facility] Medical History NVD (normal vaginal delivery) ?O80 - Encounter for full-term uncomplicated delivery (ICD-10) Depression ?F32.A - Depression, unspecified (ICD-10) Surgical History No history of previous surgery Family History Maternal Grandfather Diabetes Maternal Grandmother Brain cancer Social History Smoking Status: Never smoker Exam Const: Vital Signs, click to edit/add: Vital Signs - 24 hr 11/04/24 08:37 Temperature 98.2 F Pulse Rate [Pulse Oximeter] 97 Respiratory Rate 16 Blood Pressure [Ri ght Upper Arm] 115/66 Pulse Oximetry 96 Oxygen Delivery Me thod Room Air This 24-year-old female is alert, interactive, no apparent distress but looks like she is not feeling well. She was lying on her right side on the bed but when I come in she rolls over in sits up to converse with me. Her speech is normal. Pupils equal round reactive, sclera clear. Symmetrical facial funct ion. TMs canals are absolutely normal, normal translucency, no discoloration, no drainage. Oropharynx slightly dry but no exudates or erythema noted. Posterior pharynx looks normal. Neck is supple, no adenopathy, no thyromegaly masses or nodules. She is coughing but speech without hoarseness. Lungs are clear, good air entry, no wheezing or crackles, no tachypnea. CV regular rate and rhythm, no murmur, normal S1-S2. Abdomen is soft, nontender, nondistended, no organomegaly. Documenting provider has reviewed patient's vital signs: yes Course Course ED Course: Have reviewed with patient that we will place an IV, will start with IV Toradol and some IV fluids. Given the severity of her headache, discussed CT imaging which she would agree to do. Will do noncontrast head CT, will get a look at some of the sinuses with this. Will do triple viral swab and some basic labs. This is likely influenza or COVID given her respiratory symptoms with this. Could be secondary pneumonia. We will see where her white count is in where labs are. Can undertake further imaging and labs if need be. Doubt meningitis or encephalitis as clinically she looks much better and is afebrile than I would expect for somebody with this condition. Reevaluation(s) Time of Reevaluation #1: 10:26 Reevaluation #1: Reviewed with patient that she is influenza A positive. We reviewed that her white count is low which is suggestive of a viral pathology. Her head CT is not showing any concerning change. She is feeling better with the fluids and the Toradol. Will send her with oral Toradol. She is out of treatment guidelines for influenza. If you consider the beginning of her illness as the start of influenza a verses 3 days ago when she really started to become more ill, either way she is out of treatment window. Vital Signs Vital signs: Initial Vital Signs Temperature 98.2 F 11/04/24 08:37 Temperature Source Temporal Artery Scan 11/04/24 08:37 Pulse Rate 97 11/04/24 08:37 Respiratory Rate 16 11/04/24 08:37 Blood Pressure 115/66 11/04/24 08:37 Blood Pressure Mean 82 11/04/24 08:37 Blood Pressure Position Sitting 11/04/24 08:37 Pulse Oximetry 96 11/04/24 08:37 Oxygen Delivery Method Room Air 11/04/24 08:37 Vital Signs Temperature 98.2 F 11/04/24 08:37 Pulse Rate 97 11/04/24 08:37 Respiratory Rate 16 11/04/24 08:37 Blood Pressure 115/66 11/04/24 08:37 Pulse Oximetry 96 11/04/24 08:37 Oxygen Delivery Method Room Air 11/04/24 08:37 Temperature 98.2 F 11/04/24 08:37 Pulse Rate 97 11/04/24 08:37 Respiratory Rate 16 11/04/24 08:37 Blood Pressure 115/66 11/04/24 08:37 Pulse Oximetry 96 11/04/24 08:37 Oxygen Delivery Method Room Air 11/04/24 08:37 Medications Administered Medications: Generic Name Dose Route Start Last Admin Trade Name Freq PRN Reason Stop Dose Admin Sodium Chloride 1,000 mls @ 500 mls/hr 11/04/24 09:00 11/04/24 10:07 0.9 % Sodium Chloride 1000 Ml IV 11/04/24 10:59 Infused .Q2H YANNI Infusion Discontinued Medications Generic Name Dose Route Start Last Admin Trade Name Freq PRN Reason Stop Dose Admin Ketorolac Tromethamine 15 mg 11/04/24 08:59 11/04/24 09:30 Ketorolac 15 Mg/Ml Inj IVP 11/04/24 09:00 15 mg ONCE ONE Administration MDM - Headache Lab Data Attestation: I reviewed the patient's lab results. Labs: Lab Results 11/04/24 11/04/24 Range/Units 09:00 09:20 WBC 4.32 L (4.50-11.00) K/uL RBC 4.40 (4.00-5.20) m/uL Hgb 13.2 (12.0-16.0) gm/dL Hct 39.0 (33.0-51.0) % MCV 89 (80-100) fL MCH 30 (26-34) pg MCHC 34 (32-36) gm/dL RDW Coeff of Radha 12.6 (11.5-15.5) % Plt Count 232 (140-440) K/uL Neut % (Auto) 62.5 (42.0-72.0) % Lymph % (Auto) 21.3 (20-44) % Navarro % (Auto) 12.3 H (0.0-11.0) % Eos % (Auto) 3.2 (0.0-7.0) % Baso % (Auto) 0.5 (0.0-3.0) % Neut # (Auto) 2.70 (1.7-7.0) K/uL Lymph # (Auto) 0.90 (0.90-2.90) K/uL Navarro # (Auto) 0.50 (0.00-0.90) K/UL Eos # (Auto) 0.10 (0.00-0.50) K/uL Baso # (Auto) 0.00 (0.00-0.30) K/uL Abs Immat Gran (auto) 0.00 (0.00-0.30) K/uL Imm/Tot Granulo (auto) 0.2 % Sodium 138 (135-149) mmol/L Potassium 3.8 (3.6-5.1) mmol/L Chloride 108 (96-114) mmol/L Carbon Dioxide 21 (20-32) mmol/L Anion Gap 9 (7-15) mEq/L BUN 9 (5-24) mg/dL Creatinine 0.6 (0.5-1.5) mg/dL Estimated Creat Clear 124.85 Estimated GFR 128 ml/min Glucose 103 (60-115) mg/dL Lactate 0.4 L (0.5-1.9) mmol/L Calcium 8.6 (8.4-10.6) mg/dL C-Reactive Protein 1.9 H (0.5-1.0) mg/dL HCG, Qual Negative (Negative) SARS-CoV-2 (PCR) Negative SARS-CoV-2 (Negative) Influenza Type A (PCR) POSITIVE PCR FLU A A (Negative) Influenza Type B (PCR) Negative PCR FLU B (Negative) RSV (PCR) Negative PCR RSV (Negative) Imaging Data CT scan - head: Attestation: I have reviewed the pertinent imaging results. My impression: Did visualize head CT, see motion artifact in a portion of it. I do not appreciate acute pathology on my preliminary review. Will await Radiology over- read. Radiologist's impression: Patient: COLEMAN DELAROSA Facility:?[facility] Patient ID:?[id number] Site Patient ID:?[id number]. Site :?[id number] Study:?CT-Head W/O-11/04/2024 9:16:09 AM Ordering Physician:Marvin Belcher Final Report: INDICATION: Severe headache. TECHNIQUE: CT head without contrast. COMPARISON: None. FINDINGS: Motion degrades image quality. There is no mass effect or midline shift. No hydrocephalus. No CT evidence of acute hemorrhage or infarction. No abnormal extra-axial fluid collection. Bone windows show no acute calvarial fracture. Paranasal sinuses and orbits as imaged are unremarkable. IMPRESSION: No acute intracranial abnormality. Dictated by Jason Lugo MD @ 11/04/2024 10:01:04 AM Please note that all CT scans at this facility use dose modulation, iterative reconstruction, and/or weight-based dosing when appropriate to reduce radiation dose to as low as reasonably achievable. Dictated by: Jason Lugo MD @ 11/04/2024 10:01:08 (Electronic Signature) Discharge Plan Discharge Clinical Impression: Influenza A Headache Qualifiers: Headache type: unspecified Headache chronicity pattern: acute headache Intractability: intractable Qualified Code(s): R51.9 - Headache, unspecified Patient Disposition: Home, Self-Care Condition: Stable Instructions: Influenza (ED) Additional Instructions: Can use Toradol initially for headache, can still use Tylenol with this 1000 mg up to 3 times a day. Once the Toradol is done, can go back to Tylenol and ibuprofen alternating per bottle directions for symptom control. Push fluids, it is important for you to stay hydrated. If you are not improving over the next week, feel you are worsening at any point or have further concerns, please seek re-evaluation. Prescriptions: New ketorolac 10 mg tablet 10 mg PO Q6H PRN (Reason: pain) Qty: 20 0RF Rx Instructions: maximum total duration of 5 days from all oral, intranasal, or parenteral formulations No Action No Known Home Medications Follow Up/Referrals: Provider,Not a Local [Primary Care Provider] - Stand Alone Forms: [id number] Info Instructions
--- NOTE | 2024-11-04 08:59 | CRLHL7_ITS ---
For Patients: As a result of the Cures Act, medical imaging exams and procedure reports are released immediately into your electronic medical record. You may view this report before your referring provider. If you have questions, please contact your health care provider. INDICATION: Severe headache. TECHNIQUE: CT head without contrast. COMPARISON: None. FINDINGS: Motion degrades image quality. There is no mass effect or midline shift. No hydrocephalus. No CT evidence of acute hemorrhage or infarction. No abnormal extra-axial fluid collection. Bone windows show no acute calvarial fracture. Paranasal sinuses and orbits as imaged are unremarkable. IMPRESSION: No acute intracranial abnormality. Dictated by Jason Lugo MD @ 11/04/2024 10:01:04 AM Please note that all CT scans at this facility use dose modulation, iterative reconstruction, and/or weight-based dosing when appropriate to reduce radiation dose to as low as reasonably achievable. Dictated by: Jason Lugo MD @ 11/04/2024 10:01:08 (Electronically Signed)
[2024-11-04 09:26] LABS: Lactate* 0.4 mmol/L (0.5-1.9)
[2024-11-04 09:30] LABS: Basophils Percent Auto 0.5 % (0.0-3.0); Eosinophils Percent Auto 3.2 % (0.0-7.0); Hemoglobin* 13.2 gm/dL (12.0-16.0); Immature Granulocytes Pct Auto 0.2 %; Lymphocytes Percent Auto 21.3 % (20-44); Mean Corpuscular HGB Conc 34 gm/dL (32-36); Mean Corpuscular Hemoglobin 30 pg (26-34); Mean Corpuscular Volume 89 fL (80-100); Monocytes Percent Auto 12.3 % (0.0-11.0); Neutrophils Percent Auto 62.5 % (42.0-72.0); Platelet Count* 232 K/uL (140-440); RDW Coefficient of Variation % 12.6 % (11.5-15.5); White Blood Count* 4.32 K/uL (4.50-11.00)
[2024-11-04] MEDS: KETOROLAC 15 MG/ML inj IVP (09:30)
[2024-11-04] MEDS: 0.9 % SODIUM CHLORIDE 1000 ml 1,000 ML 500 ML IV (09:30)
[2024-11-04 09:32] LABS: Slide Review Reflex No
[2024-11-04 09:43] LABS: PCR FLU A POSITIVE PCR FLU A (Negative); PCR FLU B Negative PCR FLU B (Negative); PCR RSV Negative PCR RSV (Negative); SARS PCR* Negative SARS-CoV-2 (Negative)
[2024-11-04 09:45] LABS: Chloride* 108 mmol/L (96-114); Sodium* 138 mmol/L (135-149)
[2024-11-04 09:46] LABS: Potassium* 3.8 mmol/L (3.6-5.1)
[2024-11-04 09:48] LABS: Creatinine* 0.6 mg/dL (0.5-1.5); Est. Creatinine Clearance* 124.85; Estimated Glomerular Filt Rate 128 ml/min
[2024-11-04 09:49] LABS: Anion Gap 9 mEq/L (7-15); Blood Urea Nitrogen* 9 mg/dL (5-24); Calcium* 8.6 mg/dL (8.4-10.6); Carbon Dioxide* 21 mmol/L (20-32); Glucose* 103 mg/dL (60-115)
[2024-11-04 09:52] LABS: C Reactive Protein* 1.9 mg/dL (0.5-1.0)
[2024-11-04 09:59] LABS: HCG Qualitative Serum* Negative (Negative)
== END 2024-11-04 10:47 | disposition home or self-care (01) ==
PROVIDERS: Emergency Provider Family Medicine
DX: J10.1 Influenza due to other identified influenza virus with other respiratory manifestations (principal); R51.9 Headache, unspecified
CPT/HCPCS: 36415; 70450; 80048; 83605; 84703; 85025; 86140; 87631; 94761; 96374; 99284; J1885; J7030

== ENCOUNTER 2025-03-15 14:26 | Outpatient (CLI) | payer MEDICAID, SELFPAY ==
[2025-03-17 20:25] LABS: HPV Source Cervical; HPV, High Risk by TMA Not Detected
== END 2025-03-15 14:27 | disposition home or self-care (01) ==
PROVIDERS: PCP Family Medicine; Visit Provider Family Medicine
DX: Z12.4 Encounter for screening for malignant neoplasm of cervix (principal); Z11.51 Encounter for screening for human papillomavirus (HPV); Z11.1 Encounter for screening for respiratory tuberculosis; Z11.4 Encounter for screening for human immunodeficiency virus [HIV]
CPT/HCPCS: 86480; 86703; 87624; 87625; 88141; 88142

== ENCOUNTER 2025-04-13 08:12 | Outpatient (CLI) | payer MEDICAID, SELFPAY ==
--- NOTE | 2025-04-13 08:15 | CRLHL7_ITS ---
For Patients: As a result of the Cures Act, medical imaging exams and procedure reports are released immediately into your electronic medical record. You may view this report before your referring provider. If you have questions, please contact your health care provider. OB ULTRASOUND LESS THAN 14 WEEKS, 04/13/2025 CLINICAL HISTORY: Dating and viability. TECHNIQUE: Real time glover-scale imaging of the fetus was performed. Transvaginal imaging performed. COMPARISON: None. FINDINGS: LMP: 02/16/2025. ARLYN by LMP: 11/23/2025. GA: 8 weeks 0 days. CRL: 1.2 cm, 7 weeks 2 days. ARLYN 11/28/2025. FHR: 142 bpm. GEST SAC: 3.1 cm, appears WNL. YOLK SAC: 3.5 mm, appears WNL. RIGHT OV: 4.6 x 2.6 x 3.3 cm. LEFT OV: 3.6 x 1.3 x 1.5 cm IMPRESSION: Single living intrauterine measuring 7 weeks 2 days with sonographic due date 11/28/2025. Bulmaro Smith M.D. Diagnostic Radiologist [email or web address] Transcribed: 1:26 pm DW/Dictated by: Bulmaro Smith MD @ 04/13/2025 11:21:00 AM (Electronically Signed)
== END 2025-04-13 08:13 | disposition home or self-care (01) ==
LOC: US 08:13
PROVIDERS: PCP Family Medicine; Visit Provider Physician Assistant
DX: Z34.91 Encounter for supervision of normal pregnancy, unspecified, first trimester (principal); Z3A.08 8 weeks gestation of pregnancy
CPT/HCPCS: 76817; 83021; 86592; 86703; 86704; 86706; 86762; 86787; 86803; 86850; 87086; 87340; 87491; 87591

== ENCOUNTER 2025-05-14 15:19 | Outpatient (CLI) | payer MEDICAID, SELFPAY ==
[2025-05-14 17:22] LABS: Chlamydia DNA Amplified* NOT DETECTED (No Detected); GC DNA Amplified* NOT DETECTED (No Detected)
== END 2025-05-14 15:20 | disposition home or self-care (01) ==
LOC: NFLDREF 15:19
PROVIDERS: PCP Family Medicine; Visit Provider Advanced Practice Midwife
DX: N89.8 Other specified noninflammatory disorders of vagina (principal)
CPT/HCPCS: 87491; 87591

== ENCOUNTER 2025-09-07 08:40 | Outpatient (CLI) | payer MEDICAID, SELFPAY | END 2025-09-07 08:41 | disposition home or self-care (01) | LOC: NFLDREF 09-10 09:59 | PROVIDERS: PCP Family Medicine; Referring Provider Family Medicine; Visit Provider Advanced Practice Midwife | DX: Z34.93 Encounter for supervision of normal pregnancy, unspecified, third trimester (principal) | CPT/HCPCS: 86592 ==

== ENCOUNTER 2025-09-11 08:25 | Outpatient (CLI) | payer MEDICAID, SELFPAY | END 2025-09-11 08:26 | disposition home or self-care (01) | LOC: NFLDREF 09-14 04:36 | PROVIDERS: PCP Family Medicine; Referring Provider Family Medicine; Visit Provider Advanced Practice Midwife | DX: R73.09 Other abnormal glucose (principal); Z34.93 Encounter for supervision of normal pregnancy, unspecified, third trimester | CPT/HCPCS: 82951; 82952 ==